=== PATIENT | male | born 1940 | race Caucasian/White ===

== ENCOUNTER → 2024-05-12 11:46 | Outpatient (REF) | payer OTHER, SELFPAY | LOC: PAVMRI 11:46 | PROVIDERS: ATTENDING PHYSICIAN Internal Medicine | DX: M21.372 Foot drop, left foot (principal) | CPT/HCPCS: 72148 ==

== ENCOUNTER 2024-12-19 20:30 | Inpatient (IN) | payer OTHER, SELFPAY ==
[2024-12-19] VITALS (19 sets, daily range): BP systolic 96–125; BP diastolic 56–75; BMI 28.0
--- NOTE | 2024-12-19 18:18 | ED.GENMED ---
History of Present Illness
General
Chief Complaint: Weakness
Time Seen by Provider: 12/19/24 18:18
History of Present Illness
History of Present Illness:
TIME OF INITIAL ENCOUNTER: 6:20 PM
HPI: The patient came in by ambulance from home due to weakness. He apparently was seen by his son who lives in [place] who called for EMS. The patient is somewhat of a limited historian. He does not offer specific complaints however when
asked about GI bleeding he said that his stools have been dark over the last couple of weeks. He thinks that he takes both aspirin and Plavix. EMS noted systolics in the 80s prior to arrival.
EXAM:
GENERAL: The patient is ill-appearing and mildly hypotensive, appears somewhat disheveled
HEENT: Slightly dry oral mucosa
CARDIOVASCULAR: No murmurs, normal heart rate, regular rhythm, No chest wall tenderness
PULMONARY: No respiratory distress, breath sounds are clear and equal
ABDOMEN: Soft with no peritoneal signs, no tenderness, presently heme positive very dark brown stool
NEUROLOGIC: Weak strength all extremities, no coordination deficits
PSYCHIATRIC: He is oriented to the month and place but appears somewhat confused at times
EXTREMITIES: Nontender, no edema, moves all extremities equally
SKIN: He is pale
NUMBER AND COMPLEXITY OF PROBLEMS ADDRESSED AT THE ENCOUNTER
� Chronic conditions affecting care: A-fib, high blood pressure, hyperlipidemia, anxiety/depression
� Acute Exacerbation and/or Progression of Chronic Illness: This is an acute problem
� Differential Diagnosis includes: GI bleed, anemia, dehydration, JEANIE
AMOUNT AND/OR COMPLEXITY OF DATA TO BE REVIEWED AND ANALYZED
� I performed an independent evaluation of and my interpretation is:
EKG: Sinus 75, left axis deviation, bifascicular block
CT:
X-rays:
Laboratory Studies: White count 7.9, hemoglobin 4.5, BUN 39, creatinine 1.2, bicarb is 18
Other:
� Review of other/old records: I reviewed old records, in 2021 the hemoglobin 15.8
� Clinical information was obtained by an independent historian: I spoke to son at bedside.
� Prescriptions/Medications Considered but not given:
� Further testing considered but not performed: No indication for imaging as the patient has no pain and I suspect etiology is an upper GI bleed
RISK OF COMPLICATIONS AND/OR MORBIDITY OR MORTALITY OF PATIENT MANAGEMENT
� Social determinants of health affecting care: Lives at home
� Discussion with other providers: I notified Dr. Barber at 7:30 PM. Hospitalist for admission, Dr. Garland at 7:30 PM
� Escalation of care including admission/observation vs risk of discharge considered:
ANY OTHER UPDATES:
7:25 PM: The patient is found to be markedly anemic. He is on 2 antiplatelets and recently had been taking NSAIDs. I have ordered 3 units of blood. Informed consent signed. I have ordered 80 mg of Protonix as well. He was given IV fluid by EMS.
Past History
Past History
ED Past Medical History: Arrthythmia, HTN, Hypercholesterolemia and Other (Prostate hypertrophy)
ED Past Surgical History: Urological (Prostate surgery)
Social History
Tobacco: Non-smoker
Alcohol: None
Drug: None
Personal:
Living: with family
Phy Exam
Physical Exam
Physical Exam:
See HPI
Course
Orders/Labs/Results
Orders:
Orders
12/19/24 18:18
EKG [Electrocardiogram (*1)] Urgent
Reason for Study: Fatigue / Weakness
EKG- Treatment ONCE
12/19/24 18:28
Pantoprazole [Protonix IV] 80 mg IV NOW STA
12/19/24 18:54
Type And Crossmatch [Type+Screen] Urgent
Complete Blood Count/With Diff Urgent
Comprehensive Metabolic Panel Urgent
12/19/24 19:16
ABO2 Urgent
BBK Wristband Number:
Associate notified that ABO2 has been ordered: [id number]
Date: 12/19/24
Time: 19:12
Endodontic Assistant ID: [id number]
12/19/24 19:19
* Blood Bank Products Urgent
Blood Bank Products: *Packed RBC Leuko(PRBC's)
Quantity: 3
Transfuse Today: Yes
Reason: Anemia
Abnormal Lab Results
12/19/24
18:54
RBC 2.13 L 10^6/uL
(4.70-6.10)
Hgb 4.5 L* g/dL
(13.0-18.0)
Hct 15.7 L* %
(39.0-52.0)
MCV 73.7 L fL
(80.0-94.0)
MCH 21.1 L pg
(27.0-31.0)
MCHC 28.7 L g/dL
(33.0-37.0)
RDW 18.2 H %
(11.5-14.5)
MPV 10.6 H fL
(7.4-10.4)
Abs Immat Gran (auto) 0.1 H 10^3/uL
(0-0.05)
Absolute Lymphs (auto) 0.7 L 10^3/uL
(1.2-3.4)
Immature Gran % 0.8 H %
(0-0.5)
Neutrophils % 82.0 H %
(42.2-75.2)
Lymphocytes % 9.3 L %
(20.5-51.1)
Chloride 109 H mmol/L
(98-107)
Carbon Dioxide 18 L mmol/L
(22-30)
BUN 39 H mg/dl
(9-20)
Glucose 132 H mg/dl
(70-99)
Total Protein 5.0 L g/dl
(6.3-8.2)
Albumin 3.4 L g/dl
(3.5-5.0)
12/19/24 18:54
12/19/24 18:54
Vital Signs
Initial and Last Documented VS:
Initial Vital Signs
Temp Pulse Resp BP Pulse Ox
36.8 C 71 16 101/56 95
12/19/24 18:42 12/19/24 18:42 12/19/24 18:42 12/19/24 18:42 12/19/24 18:42
Last Documented Vital Signs
Temp Pulse Resp BP Pulse Ox
36.8 C 67 20 107/62 95
12/19/24 18:42 12/19/24 19:15 12/19/24 19:15 12/19/24 19:00 12/19/24 18:42
*Critical Care Note
Total Time (30-74mins, 75-104mins- exclusive of procedures): 50min
comment:
The patient is very pale in appearance and is found to have a hemoglobin of 4.5. Blood pressure is borderline low. Emergently ordered 3 units of blood.
ED Attending Note
-
Portions of this chart may have been created with voice recognition software.� Occasional wrong word or��sound alike� substitutions may have occurred due to the inherent limitations of voice recognition software.
Discharge Plan
Departure
Patient Disposition: Admit
Date of Disposition: 12/19/24
Time of Disposition: 19:31
Presentation/result/management discussed w/ accepting MD/DO: Hospitalist
Discharge Problem:
Acute upper GI bleed
Prescriptions:
No Action
prednisone 50 mg tablet
50 mg PO DAILY Qty: 5 0RF
artificial tears(hypromellose) 0.3 % drops
2 drp ophthalmic (eye) TID PRN (Reason: dry eyes) Qty: 30 0RF
Rx Instructions:
use as needed particularly at bedtime
valacyclovir 1 gram tablet
1,000 mg PO TID 7 Days Qty: 21 0RF
cephalexin 500 mg capsule
500 mg PO BID 7 Days Qty: 14 0RF
Referrals:
Tai Ledezma MD [Family Provider] -
Interventions
Interventions:
*Risk Screen - Suicide Last Done: 12/19/24 18:42
*General Assessment Last Done: 12/19/24 18:42
*Neglect/Abuse Screening Last Done: 12/19/24 18:42
*ED COVID-19 Vaccine History Last Done: 12/19/24 18:42
ED- Cardiac Assessment Last Done: 12/19/24 19:23
ED- Neurological Assessment Last Done: 12/19/24 19:23
ED- Pulmonary Assessment Last Done: 12/19/24 19:23
Discharge Date and Time
Print Language: SWISS
[2024-12-19 19:03] LABS: % Basophils 0.1 % (0-2); % Eosinophils 0.3 % (0-6); % Immature Granulocytes 0.8 % (0-0.5); % Lymphocytes 9.3 % (20.5-51.1); % Monocytes 7.5 % (1.7-9.3); Absolute Immature Granulocytes 0.1 10^3/uL (0-0.05); Absolute Lymphocytes 0.7 10^3/uL (1.2-3.4); Absolute Monocytes 0.6 10^3/uL (0.1-0.6); Absolute Neutrophils 6.5 10^3/uL (1.4-6.5); Hematocrit 15.7 % (39.0-52.0); Hemoglobin 4.5 g/dL (13.0-18.0); Mean Corp Hgb Conc. 28.7 g/dL (33.0-37.0); Mean Corpuscular Hgb 21.1 pg (27.0-31.0); Mean Corpuscular Volume 73.7 fL (80.0-94.0); Mean Platelet Volume 10.6 fL (7.4-10.4); Nucleated Red Blood Cells % 0 % (-); Platelet Count 209 10^3/uL (130-400); Red Blood Cell Count 2.13 10^6/uL (4.70-6.10); Red Cell Dist. Width 18.2 % (11.5-14.5); White Blood Cell Count 7.9 10^3/uL (4.8-10.8)
[2024-12-19] MEDS: PROTONIX IV 80 MG IV (19:13)
[2024-12-19 19:15] LABS: ALT (SGPT) 16 U/L (0-50); AST (SGOT) 22 U/L (17-59); Albumin 3.4 g/dl (3.5-5.0); Alkaline Phosphatase 47 U/L (38-126); Blood Urea Nitrogen 39 mg/dl (9-20); Calcium 9.4 mg/dl (8.4-10.2); Carbon Dioxide 18 mmol/L (22-30); Chloride 109 mmol/L (98-107); Estimated Creatinine Clearance 50 ml/min; Glucose 132 mg/dl (70-99); Potassium 3.7 mmol/L (3.5-5.1); Sodium 137 mmol/L (135-145); Total Bilirubin 0.4 mg/dl (0.2-1.3); eGFR > 60.00
[2024-12-19 19:19] LABS: Anisocytosis 1+; Microcytosis 2+; Normal RBC Morphology No
[2024-12-19 19:22] LABS: Hypochromasia 2+
[2024-12-19 19:24] LABS: Ovalocytes 3+
--- NOTE | 2024-12-19 19:41 | HPS.HSE ---
Addendum entered and electronically signed by Lawanda Broussard DO 12/20/24 00:01:
The patient is seen and examined. I have reviewed the patient with Ana YA, and agree with her history and physical, assessment and plan of care as per below with additions: Has had worsening generalized weakness; Black stools x 2 weeks. Patient
does not recall why he is on aspirin and Plavix. Not on DOAC. He is not sure if he's been taking NSAID or Tylenol OP for spinal stenosis pain. He does not recall having ever had an upper endoscopy nor colonoscopy. No active bleeding. Stool Hemoccult
positive for blood.
VSS, AF
Currently receiving PRBC in ED - 3 units ordered
Hgb 4.5
Concern is for acute blood loss anemia upper GI bleed
-plan of care as per below. Will try to obtain records from PCP re: aspirin and Plavix.
Original Note:
Family Physician
-
Family Physician: Tai Ledezma
Chief Complaint
-
Weakness
History of Present Illness
Patient is an 84 y/o male past medical history of atrial fibrillation, hypertension, hyperlipidemia, anxiety/depression and BPH who presents with weakness. Patient reports increasing weakness over the past few weeks to the point he can no longer
ambulate. He reports dizziness/lightheadedness and note he cant walk more than 10 steps without symptoms. He admits to associated shortness of breath and a pins/needles sensation in his feet. He reports very dark to black colored stools over the
past few weeks. He notes some upper abdominal discomfort. He denies chest pain. He denies prior history of GI bleed and does not believe he has ever had an upper endoscopy or colonoscopy. He is maintained on aspirin and Plavix as outpatient. He
states he did take some Motrin recent but notes this a rare occurrence.
Medical History
Past Medical History
Past Medical History: Reports Other
Additional Past Medical History:
Paroxysmal Atrial Fibrillation
Essential Hypertension
Hyperlipidemia
Anxiety/Depression
BPH
Past Surgical History: Reports Other
Additional Past Surgical History:
Skin Cancer Excision
TURP
Social History
Tobacco: Former Smoker (Quit about 5 years ago)
Alcohol: Occasional
Personal:
Living: With Family
Family History
Family History: Not pertinent
Allergies / Home Medications
Allergies reflects when Allergies were last updated in [facility].
Home Medications with original date entered in [facility]
Allergy/Medication List:
Allergies
Allergy/AdvReac Type Severity Reaction Status Date / Time
No Known Allergies Allergy Verified 12/19/24 18:17
Home Medications
amlodipine 5 mg tablet 5 mg PO DAILY 12/19/24
aspirin 81 mg tablet,delayed release 81 mg PO DAILY 12/19/24
atorvastatin 10 mg tablet 10 mg PO DAILY 12/19/24
clopidogrel 75 mg tablet 75 mg PO DAILY 12/19/24
escitalopram oxalate 10 mg tablet (Lexapro) 10 mg PO DAILY 12/19/24
hydrochlorothiazide 25 mg tablet 25 mg PO DAILY 12/19/24
metoprolol succinate 100 mg tablet,extended release 24 hr 100 mg PO DAILY 12/19/24
tamsulosin 0.4 mg capsule 0.4 mg PO DAILY 12/19/24
valsartan 320 mg tablet 320 mg PO DAILY 12/19/24
Review of Systems
-
A 12 point ROS was completed and negative except as noted: Yes
Constitutional: Denies Fever or Chills
Respiratory: Denies Cough
Cardiac: Denies Palpitations
Physical Exam
Vital Signs
Vital Signs
Temp Pulse Resp BP Pulse Ox
98.3 F 67 20 107/62 95
12/19/24 18:42 12/19/24 19:15 12/19/24 19:15 12/19/24 19:00 12/19/24 18:42
Physical Exam
General: Comfortable, Conversant and Other (Appears pale)
HEENT: Anicteric and Moist mucous membranes
Respiratory: Clear and Non Labored Respirations
Cardiac: S1/S2 and Regular Rhythm
GI: Soft and Tender (Mild tenderness to palpation in epigastric region without rebound or guarding)
Rectal: Black and Hem Positive (Per ED Provider)
Musculoskeletal: No Clubbing, No Cyanosis and No Edema
Skin: Warm and Dry
Neuro: Awake, Alert and Nonfocal/grossly intact
Psych: Calm
Laboratory Results
-
12/19/24 18:54
12/19/24 18:54
Laboratory Results
Total Bilirubin 0.4 mg/dl (0.2-1.3) 12/19/24 18:54
AST 22 U/L (17-59) 12/19/24 18:54
ALT 16 U/L (0-50) 12/19/24 18:54
Alkaline Phosphatase 47 U/L (38-126) 12/19/24 18:54
Data Reviewed
-
Lab Data: Labs Reviewed by me
Old Records: Requested
Impression/Plan
-
Acute Blood Loss Anemia secondary to GI Bleed
-3 units PRBCs ordered by ED
-Recheck Hgb following blood transfusion
-Check iron studies
GI Bleed, likely upper in nature
-Consult GI
-Continue Protonix IV BID
-Continue NPO
-Hold Plavix
Paroxysmal Atrial Fibrillation
-Patient is not on anticoagulation - Will attempt to obtain records from PCP as patient is a limited historian and does not visit doctors regularly
-Continue metoprolol for rate control
Essential Hypertension
-Continue metoprolol, amlodipine and valsartan with hold parameters
Hyperlipidemia
-Continue atorvastatin
Anxiety/Depression
-Continue escitalopram
BPH
-Continue tamsulosin
DVT proph: SCDs
Code Status: Full Code
[2024-12-19 20:42] LABS: Iron < 20 ug/dl (49-181)
[2024-12-19 20:49] LABS: Total Iron Binding Capacity 354 ug/dl (261-462)
[2024-12-19 21:46] LABS: Vitamin B12 602 pg/ml (239-931)
--- NOTE | 2024-12-19 22:47 | EDRN ---
First unit complete. As RN flushing IV s/p blood transfusion completion, pt. stated, 'I do have a little pain to the right side of my chest, it's barely there, but it feels like a bruise'. Pt. denies shortness of breath. EKG completed. Admitting
team paged and at bedside. Per admitting team, pt. still to receive ordered blood.
[2024-12-19 23:03] LABS: Folate > 20.0 ng/ml (2.76-20)
[2024-12-20] VITALS (27 sets, daily range): BP systolic 116–167; BP diastolic 70–88; PULSE 68–76; O2SAT 96; BMI 27.3; BMI 27.2
--- NOTE | 2024-12-20 00:03 | PTCARENOTE ---
Received patient from ED @ 5101. Patient awake and oriented x3. BP 120/71, NSR with first degree and BBB 60s-70s, 98% on room air. Discussed plan of care for evening. Patient verbalized understanding being NPO. Call kaba within reach.
--- NOTE | 2024-12-20 02:00 | PTCARENOTE ---
Addendum entered by Hermila Carlson RN 12/20/24 03:25:
Second unit completed with no issues.
Original Note:
Second unit of blood transfusing-- see TAR. No c/o of patient. Stated he was 'actually feeling a lot better.' Vitals stable.
--- NOTE | 2024-12-20 03:25 | PTCARENOTE ---
Third unit of PRBCs initiated-- see TAR.
--- NOTE | 2024-12-20 05:24 | PTCARENOTE ---
Third unit of PRBCs completed. Pt denies any SOB, chills, itchiness, or other symptoms of reaction. States feeling much better.
[2024-12-20 05:54] LABS: Blood Urea Nitrogen 33 mg/dl (9-20); Calcium 9.1 mg/dl (8.4-10.2); Carbon Dioxide 19 mmol/L (22-30); Chloride 112 mmol/L (98-107); Estimated Creatinine Clearance 54 ml/min; Glucose 90 mg/dl (70-99); Potassium 3.8 mmol/L (3.5-5.1); Sodium 141 mmol/L (135-145); eGFR > 60.00
[2024-12-20 07:03] LABS: Hemoglobin 7.3 g/dL (13.0-18.0); Mean Corp Hgb Conc. 30.4 g/dL (33.0-37.0); Mean Corpuscular Hgb 23.8 pg (27.0-31.0); Mean Corpuscular Volume 78.2 fL (80.0-94.0); Platelet Count 197 10^3/uL (130-400); Red Blood Cell Count 3.07 10^6/uL (4.70-6.10); Red Cell Dist. Width 18.6 % (11.5-14.5); White Blood Cell Count 7.9 10^3/uL (4.8-10.8)
[2024-12-20] MEDS: TOPROL XL 100 MG PO (08:30)
[2024-12-20] MEDS: FLOMAX 0.4 MG PO (08:30)
[2024-12-20] MEDS: DIOVAN 320 MG PO (08:30)
[2024-12-20] MEDS: LEXAPRO 10 MG PO (08:30)
[2024-12-20] MEDS: NORVASC 5 MG PO (08:30)
[2024-12-20] MEDS: LIPITOR 10 MG PO (08:30)
[2024-12-20] MEDS: PROTONIX IV 40 MG IV ×2 (08:31→19:20)
[2024-12-20] MEDS: NSS (PRESERVATIVE FREE) 10 ML IV ×2 (08:31→19:20)
--- NOTE | 2024-12-20 08:48 | W.PN.HOSP.TC ---
Addendum entered and electronically signed by Artur Mg MD 12/20/24 17:03:
patient was taking ASA 325 for chronic back pain - he is not on ASA (of any dose) per PCP (see below)
Original Note:
Today's Communication/Plan
-
see outlined plan
Assessment / Plan
Assessment / Plan
Assessment:
Acute Blood Loss Anemia secondary to GI Bleed, likely upper GI bleed
- Hb 4.5 on admission. Now 7.3 after 3 units PRBCs. Follow Hb
- start IV iron course
- GI consulted
- continue PPI IV BID
- await Plavix washout
hx of Parox A. Fib
- continue BB for rate control
hx of TIA
hx of PAD
Hx of Carotid Atherosclerosis
- Dr. Mg discussed with PCP Dr. Ledezma. Patient has history of ASA failure, therefore only on Plavix. Plavix is held for acute GI bleed.
Essential HTN
- continue metoprolol, amlodipine and valsartan with hold parameters
Hyperlipidemia
- continue atorvastatin
Anxiety/Depression
- continue escitalopram
BPH
- continue tamsulosin
DVT ppx: SCDs due to GI bleed
Code Status: Full
Pending final med rec
Anticipated Discharge: > 48 hours
Subjective/Interval History
-
Date of Service: December 20, 2024
Hb 7.3
Feels improved, less fatigued
no cp or sob
Objective Data
-
Labs:
Laboratory Results
12/20/24
05:20
WBC 7.9
Hgb 7.3 L D
Hct 24.0 L
Plt Count 197
Sodium 141
Potassium 3.8
Chloride 112 H
Carbon Dioxide 19 L
BUN 33 H
Creatinine 1.1
Glucose 90
Calcium 9.1
Vital Signs:
Vital Signs
Temp Pulse Resp BP Pulse Ox
98.7 F 64 16 139/83 96
12/20/24 05:12 12/20/24 07:40 12/20/24 05:12 12/20/24 08:30 12/20/24 07:50
I&O
12/19/24 12/20/24 12/21/24
06:59 06:59 06:59
Intake Total 250 / 250
Balance 250 / 250
Physical Exam
-
General: No Apparent Distress
HEENT: Normocephalic and Atraumatic
Respiratory: Negative Wheezes
Cardiac: Regular Rhythm and S1/S2
GI: Soft and Nontender
Genito-urinary: No Costovertebral Tender
Musculoskeletal: No Edema
Neuro: AO x 3
Hematologic / Lymphatic: No Lymphadenopathy
Psych: Calm
Data Reviewed
-
Total Time Spent with Patient (in minutes): 44
Labs: Labs Reviewed by me
--- NOTE | 2024-12-20 09:25 | CM ---
Reviewed chart. Met with Mr. Conner to review discharge plans. He states prior to admission he resides with is spouse in a two story home with two steps to enter. He states he has a full flight of steps to get to bedroom/full bathroom. He states
he has a powder room on the first floor. He states prior to admission he was independent with ambulation and adls. He states he does not have any DME in the home. He states he has a prescription plan and uses [facility]. Will need to see his
current functional level to see if he will have any skilled care needs. Medical work-up in progress. The discharge plan is to return home with his spouse and [facility] if indicated when medically stable.
--- NOTE | 2024-12-20 12:31 | CON.GI ---
Addendum entered and electronically signed by Nishi Carr DO 12/20/24 14:25:
The patient was seen and examined by me independently in collaboration with the nurse practitioner.
Past medical history/social history/medications/allergies/family history reviewed.
Lab data and imaging data reviewed.
Hima Conner is an 84-year-old male with past medical history of carotid atherosclerosis, peripheral arterial disease, history of TIA, history of paroxysmal A-fib admitted with acute blood loss anemia with concern for GI bleeding. He reports
black stools at home for a few days, denies this happening in the past. He is somewhat of a poor historian but it appears he was taking aspirin 325 mg daily in conjunction with Plavix and Motrin, he was unaware this would increase his bleeding
risk. After speaking with his son, he possibly has had a colonoscopy before, on sure what the results of this were and when it occurred. Hemoglobin on arrival was 4.5, he was subsequently transfused with 3 units of PRBC with improvement to 7.3.
BUN elevated to 39 --> 33. Labs consistent with iron deficiency, Iron <20, Fe 4. He is hemodynamically stable.
Suspect UGIB source of bleeding in setting of DAPT with possible inadvertent increase of ASA to 325 mg as well as NSAID use, supported by elevated BUN. He is hemodynamically stable, responded well to 3 units of PRBC.
A/P:
c/w IV PPI BID
Last dose of ASA/Plavix yesterday 2/
s/p 3 units of PRBC with appropriate response
maintain 2 large bore peripheral gauge IVs
Active T&C
NPO PMN for EGD in AM with Dr. Barber
Discussed with patient's son, Hima
Original Note:
Consultation
-
Date/Time Consultation Requested: 12/19/242119
Date/Time Consultation Performed: 12/20/24 1230
Requesting Provider: Eli Obrien PA-C
Performing Provider: HENRI Julian, Louis Barber MD
Reason for Consultation: anemia- acute blood loss
Medical History
Chief Complaint / HPI
Chief Complaint: shortness of breath, recent dark stools
History of Present Illness:
Pt is an 84yo with hx PAF, TIA on Plavix PAD, HTN, hyperlipidemia, anxiety/depression, BPH with admission with weakness with shortness of breath and tinging in feet and fall. On admission noted with hbg 4.5 with microcytosis and iron deficiency and
BUN of 39. Pt is s/p transfusion improved to 7.3. Prior hbg 12/2023 was 13.4. In review with patient noted with recent dark stool on Thursday. Per family may have had 1 dose of Motrin but otherwise took Tylenol. May have taken increased ASA
dose of 325mg instead of 81mg.
In review with patient he admits to recent dark stool last week with dizziness on standing. He does admits to occasional loose stool then constipation requiring laxatives at time. Per patient and family no prior EGD and may have had
colonoscopy in past unclear of timing and details. He denies dysphagia, GERD, nausea, vomiting, abdominal pain, or red blood in stools. ER rectal dark brown heme +
Past Medical History
Past Medical History: Arrhythmias (PAF), CVA (TIA ), HTN, Hypercholesterolemia, Psychiatric (anxiety/depression) and Other (BPH, PAD)
Social History
Tobacco: Former Smoker
Alcohol: None
Drug: None
Personal:
Living: With Family
Employment: Retired
Family History
Family History: Other (denies family hx colon CA or polyps)
Allergies / Home Medications
Allergy/AdvReac Type Severity Reaction Status Date / Time
No Known Allergies Allergy Verified 12/19/24 18:17
�Medication �Instructions �Recorded
amlodipine 5 mg tablet 5 mg PO DAILY 12/19/24
atorvastatin 10 mg tablet 10 mg PO DAILY 12/19/24
clopidogrel 75 mg tablet 75 mg PO DAILY 12/19/24
escitalopram oxalate 10 mg tablet 10 mg PO DAILY 12/19/24
(Lexapro)
metoprolol succinate 100 mg 100 mg PO DAILY 12/19/24
tablet,extended release 24 hr
tamsulosin 0.4 mg capsule 0.4 mg PO DAILY 12/19/24
valsartan 320 mg tablet 320 mg PO DAILY 12/19/24
aspirin 325 mg capsule 325 mg PO DAILY 12/20/24
docusate sodium 100 mg capsule 100 mg PO DAILY PRN constipation 12/20/24
furosemide 20 mg tablet 20 mg PO BID 12/20/24
Review of Systems
-
History Source: Patient and Family
Constitutional: Reports Weight Loss ( 5 lbs )
EENT: Reports No Symptoms
Respiratory: Reports No Symptoms
Cardiac: Reports No Symptoms
Abdomen/GI: Reports Diarrhea (some recent loose dark stools), Constipated (occasional ducolax use ) and Black Stools (recent dark stools)
: Reports No Symptoms
Musculoskeletal: Reports No Symptoms
Skin: Reports No Symptoms
Neurological: Reports Dizzy and Weakness
Endocrine: Reports No Symptoms
Hematologic/Lymphatic: Reports Bleeding
Vital Signs
Temp Pulse Resp BP Pulse Ox
98.2 F 65 18 130/74 97
12/20/24 11:23 12/20/24 12:00 12/20/24 11:23 12/20/24 11:25 12/20/24 11:25
Physical Exam
Exam
General: Well Developed, Well Nourished and No Apparent Distress
HEENT: Normocephalic and Anicteric
Respiratory: Clear
Cardiac: Regular Rhythm
GI: Soft, Non Tender and Non Distended
Rectal: Other (dark brown heme + in ER)
Musculoskeletal: No Clubbing and No Cyanosis
Skin: Warm and Dry
Neuro: Awake, Alert and AO x 3
Psych: Calm
Results
WBC 7.9 10^3/uL (4.8-10.8) 12/20/24 05:20
Hgb 7.3 g/dL (13.0-18.0) L D 12/20/24 05:20
Hct 24.0 % (39.0-52.0) L 12/20/24 05:20
MCV 78.2 fL (80.0-94.0) L 12/20/24 05:20
Plt Count 197 10^3/uL (130-400) 12/20/24 05:20
Absolute Neuts (auto) 6.5 10^3/uL (1.4-6.5) 12/19/24 18:54
Sodium 141 mmol/L (135-145) 12/20/24 05:20
Potassium 3.8 mmol/L (3.5-5.1) 12/20/24 05:20
Chloride 112 mmol/L (98-107) H 12/20/24 05:20
Carbon Dioxide 19 mmol/L (22-30) L 12/20/24 05:20
BUN 33 mg/dl (9-20) H 12/20/24 05:20
Creatinine 1.1 mg/dL (0.7-1.3) 12/20/24 05:20
Calcium 9.1 mg/dl (8.4-10.2) 12/20/24 05:20
Total Bilirubin 0.4 mg/dl (0.2-1.3) 12/19/24 18:54
AST 22 U/L (17-59) 12/19/24 18:54
ALT 16 U/L (0-50) 12/19/24 18:54
Alkaline Phosphatase 47 U/L (38-126) 12/19/24 18:54
Diagnostic Image Results:
2/3 CXR
No acute cardiopulmonary process.
Prior GI Procedures:
EGD: none
Colonoscopy: ? [facility] in past family could not recall findings
Assessment / Plan
-
Pt is an 84yo with hx PAF, TIA on Plavix PAD, HTN, hyperlipidemia, anxiety/depression, BPH with admission with weakness with shortness of breath and tinging in feet and fall. On admission noted with hbg 4.5 with microcytosis and iron deficiency and
BUN of 39. Pt is s/p transfusion improved to 7.3. Prior hbg 12/2023 was 13.4. In review with patient noted with recent dark stool on Thursday. Per family may have had 1 dose of Motrin but otherwise took Tylenol and may have taken increased ASA
dose of 325mg instead of 81mg. He does admits to occasional loose stool then constipation requiring laxatives at time. Per patient and family no prior EGD and may have had colonoscopy in past unclear of timing and details. ER rectal dark brown
heme +.
-symptomatic iron deficiency anemia with recent dark stools concern for UGI Bleed
-elevated BUN
-s/p fall
-TIA/PAD on Plavix and ASA with ? recent increased dose
other med problems:
-PAF
-HTN
-hypercholesterolemia
-BPH
-anxiety/depression
PLAN:
etiology of bleeding upper source with dizziness, elevated BUN, recent increased ASA dose vs other
PUD, ectasia, mass vs other
cont to hold Plavix last dose 12/19
plan for EGD in AM
s/p transfusion
trend hbg hbg improved to 7.3 post transfusion
cont IV iron
cont PPI
ok for dinner then NPO in AM
I updated son Jorge [phone]
-
-
Thank you for consultation and allowing me to participate in the patient's care. Please call the authorization manager GI physician during the after hours with any questions or concerns.
[2024-12-20] MEDS: FERRLECIT 110 MG IV (13:39)
--- NOTE | 2024-12-20 20:49 | PTCARENOTE ---
Pt found oob without assistance turning off extra lights. Pt instructed to call nursing before ambulating for safety. Pt then found oob about 30 mins later ambulating in room. When approached by nursing pt hurried to bed jumping in stating 'I know I
know I'm not allowed up without you.
Pt instructed on npo status after mn for EGD.
--- NOTE | 2024-12-20 22:40 | PTCARENOTE ---
Pt appears forgetful having great difficulty understanding and retaining how to use call kaba. in bed at present. Sinus with freq pvc's on telemetry.
--- NOTE | 2024-12-20 23:01 | PTCARENOTE ---
Pt came out of room in [place] looking to turn down the lights in the hallway. Pt reoriented to surroundings. bed alarm placed.
[2024-12-21] VITALS (14 sets, daily range): BP systolic 135–192; BP diastolic 78–102; BMI 27.1
--- NOTE | 2024-12-21 00:11 | PTCARENOTE ---
Pt found sitting on side of bed with gown and telemetry pulled off appeared confused to surroundings but Pt stated he knew he was at [facility] and that he had a test that required him to be fasting. telemetry and gown replaced.
--- NOTE | 2024-12-21 03:42 | PTCARENOTE ---
Pt continues to be restless throughout the night. Found sitting on side of bed several times with gown and monitor off. Pt reorients quickly.
remains npo for EGD. am labs drawn and sent to lab, result spending.
[2024-12-21 03:52] LABS: Hematocrit 24.4 % (39.0-52.0); Hemoglobin 7.6 g/dL (13.0-18.0); Mean Corp Hgb Conc. 31.1 g/dL (33.0-37.0); Mean Corpuscular Hgb 24.1 pg (27.0-31.0); Mean Corpuscular Volume 77.2 fL (80.0-94.0); Mean Platelet Volume 10.2 fL (7.4-10.4); Platelet Count 206 10^3/uL (130-400); Red Blood Cell Count 3.16 10^6/uL (4.70-6.10); Red Cell Dist. Width 18.1 % (11.5-14.5); White Blood Cell Count 6.9 10^3/uL (4.8-10.8)
[2024-12-21 03:59] LABS: INR 1.09; PT 14.5 Sec (11.4-14.6)
[2024-12-21 04:20] LABS: Blood Urea Nitrogen 23 mg/dl (9-20); Calcium 9.2 mg/dl (8.4-10.2); Carbon Dioxide 20 mmol/L (22-30); Chloride 110 mmol/L (98-107); Estimated Creatinine Clearance 60 ml/min; Glucose 92 mg/dl (70-99); Potassium 3.9 mmol/L (3.5-5.1); Sodium 141 mmol/L (135-145); eGFR > 60.00
--- NOTE | 2024-12-21 05:52 | PTCARENOTE ---
Pt continues to get more confused getting oob looking for , reoriented but pt having harder time retaining reminders.
bed alarm remains activated.
--- NOTE | 2024-12-21 08:42 | SUR.OPER ---
Assumed care. Patient impulsive, very forgetful to place, short term memory impairment, requiring constant reminders, standing on side of bed, cooperative. Does not recall events leading up to hospitalization and did not realize he was in the
hospital. Know the time, date year and president. Removed his IV, replaced 18 gauge LAC, wrapped with cling. Bed alarm audible for safety. NPO for EGD today
[2024-12-21] MEDS: DIOVAN 320 MG PO (09:39)
[2024-12-21] MEDS: LIPITOR 10 MG PO (09:40)
[2024-12-21] MEDS: TOPROL XL 100 MG PO (09:40)
[2024-12-21] MEDS: FLOMAX 0.4 MG PO (09:40)
[2024-12-21] MEDS: NORVASC 5 MG PO (09:40)
[2024-12-21] MEDS: NSS (PRESERVATIVE FREE) 10 ML IV ×2 (09:41→20:07)
[2024-12-21] MEDS: PROTONIX IV 40 MG IV ×2 (09:41→20:07)
[2024-12-21] MEDS: LEXAPRO 10 MG PO (09:41)
--- NOTE | 2024-12-21 10:39 | PTCARENOTE ---
Patient assisted to the bathroom felt has if he had to move his bowels but just voided. He became lightheaded, dizzy, 'I feel like I need to site down'. Assisted to bed, BP 161/93. Urinal provided, bedrest maintained
--- NOTE | 2024-12-21 10:52 | PTCARENOTE ---
Report called to the GI lab
--- NOTE | 2024-12-21 11:12 | W.PN.GI.CBS2 ---
Today's Communication / Plan
-
Please see assessment plan for details.
Assessment / Plan
-
1. Iron deficiency anemia : Likely some component of acute blood loss anemia with dark stools in the past, though only brown yesterday, in the setting of aspirin, Motrin and Plavix. At this point he responded appropriately to transfusion and has
remained hemodynamically stable with no further signs of gross bleeding. Given his change in mental status we will hold on endoscopy for now given no evidence of active bleeding. Will start clear liquids, tentatively make n.p.o. for possible EGD
tomorrow pending his mental status and other clinical course.
Subjective
Subjective
Date of Service: December 21, 2024
Events noted, patient with confusion this morning, pulling out IV. Had a sounds like vagal event when stood up with sweating and lightheadedness, though vital signs after sitting down remained stable. He had no bowel movements overnight. He
currently denies any abdominal pain though is slightly confused.
Objective
Data Reviewed
Laboratory Data:
Laboratory Results
12/21/24 03:38
12/21/24 03:38
Laboratory Results
PT 14.5 Sec (11.4-14.6) 12/21/24 03:38
INR 1.09 12/21/24 03:38
Total Bilirubin 0.4 mg/dl (0.2-1.3) 12/19/24 18:54
AST 22 U/L (17-59) 12/19/24 18:54
ALT 16 U/L (0-50) 12/19/24 18:54
Alkaline Phosphatase 47 U/L (38-126) 12/19/24 18:54
Vital Signs and I&O:
Vital Signs
Temp Pulse Resp BP Pulse Ox
98.5 F 67 20 170/78 95
12/21/24 07:47 12/21/24 10:48 12/21/24 07:47 12/21/24 10:48 12/21/24 10:48
I&O
12/20/24 12/21/24 12/22/24
06:59 06:59 06:59
Intake Total 250 / 250 480 / 480
Balance 250 / 250 480 / 480
Physical Exam
Physical Exam
General: NAD
Abdomen: normal bowel sounds, soft, no tenderness, no masses or bruits, no ascites
--- NOTE | 2024-12-21 13:43 | W.PN.HOSP.TC ---
Today's Communication/Plan
-
Monitor vital signs see plan
Repeat hemoglobin later today and transfuse as necessary
EGD canceled for today
Continue clears
Check CT head
Check UA
Discussed with family at bedside
Assessment / Plan
Assessment / Plan
Assessment:
General: No Apparent Distress
HEENT: Normocephalic and Atraumatic
Respiratory: Negative Wheezes
Cardiac: Regular Rhythm and S1/S2
GI: Soft and Nontender
Genito-urinary: No Costovertebral Tender
Musculoskeletal: No Edema
Neuro: AO x 3
Psych: Calm
Acute Blood Loss Anemia secondary to GI Bleed, likely upper GI bleed
- Hb 4.5 on admission. Now 7.6 after 3 units PRBCs. Follow Hb
- start IV iron course
- GI consulted
- continue PPI IV BID
- await Plavix washout
Suspect cognitive impairment
Could also have component of hospital-acquired delirium
Discussed with family and it appears the patient has been having intermittent memory issues
Check CT head
hx of Parox A. Fib
- continue BB for rate control
hx of TIA
hx of PAD
Hx of Carotid Atherosclerosis
- Dr. Mg discussed with PCP Dr. Ledezma. Patient has history of ASA failure, therefore only on Plavix. Plavix is held for acute GI bleed.
patient was taking ASA 325 for chronic back pain - he is not on ASA (of any dose) per PCP (see below)
Essential HTN
- continue metoprolol, amlodipine and valsartan with hold parameters
Hyperlipidemia
- continue atorvastatin
Anxiety/Depression
- continue escitalopram
BPH
- continue tamsulosin
DVT ppx: SCDs due to GI bleed
Code Status: Full
I spent a total of 52 minutes with the patient or on the floor. More than 50% of this time involved counseling and coordination of care.
Anticipated Discharge: 24 - 48 hours
Subjective/Interval History
-
Date of Service: December 21, 2024
denies pain
Objective Data
-
Labs:
Laboratory Results
12/21/24
03:38
WBC 6.9
Hgb 7.6 L
Hct 24.4 L
Plt Count 206
PT 14.5
INR 1.09
Sodium 141
Potassium 3.9
Chloride 110 H
Carbon Dioxide 20 L
BUN 23 H
Creatinine 1.0
Glucose 92
Calcium 9.2
Vital Signs:
Vital Signs
Temp Pulse Resp BP Pulse Ox
97.5 F 67 20 163/90 97
12/21/24 11:27 12/21/24 11:52 12/21/24 11:27 12/21/24 11:52 12/21/24 11:27
I&O
12/20/24 12/21/24 12/22/24
06:59 06:59 06:59
Intake Total 250 / 250 480 / 480 100 / 100
Output Total 300 / 300
Balance 250 / 250 480 / 480 -200 / -200
[2024-12-21] MEDS: FERRLECIT 110 MG IV (13:50)
--- NOTE | 2024-12-21 14:26 | PTCARENOTE ---
Patient sent to CT scan on a stretcher
[2024-12-21 15:10] LABS: Urine Albumin Negative (Neg - Trace); Urine Bilirubin Negative (Negative); Urine Character Clear (Clear); Urine Color Yellow; Urine Glucose Negative (Negative); Urine Ketone 1+ (Negative); Urine Leukocyte Negative (Negative); Urine Nitrite Negative (Negative); Urine Occult Blood Negative (Negative); Urine Specific Gravity 1.015 (<1.030); Urine Urobilinogen Negative (Neg - 1+)
--- NOTE | 2024-12-21 19:09 | PTCARENOTE ---
Patient in the chair most of the afternoon, daughter at bedside. Remains confused to place, to situation, short term memory impairment requiring frequent orientation. Bed and chair alarm audible, using urinal with assistance. Call kaba in reach
[2024-12-21] MEDS: TYLENOL 650 MG PO (21:15)
[2024-12-21 21:33] LABS: Hemoglobin 8.8 g/dL (13.0-18.0)
[2024-12-22] VITALS (21 sets, daily range): BP systolic 12–178; BP diastolic 74–96; PULSE 61; BMI 26.5
--- NOTE | 2024-12-22 00:26 | PTCARENOTE ---
Pt rec'd at change of shift resting in recliner chair with pct at bedside. Family left during change of shift. Pt awake,alert and calm. oriented to year, president and stated he was in [facility] but quickly changed his answer to [place] .
Pt given bath in bathroom by pct. buttocks reddened with external Hemorrhoid present. barrier cream applied. Pt passed mod soft stool blood tinged in toilet. no further stools noted. HGB at 2100 was 8.8. At HS pt placed in bed and can be heard
snoring from hallway. bed alarm activated.
[2024-12-22] MEDS: TYLENOL 650 MG PO ×2 (05:04→21:20)
--- NOTE | 2024-12-22 05:24 | PTCARENOTE ---
Pt slept until 0500 when he woke up confused to his surroundings. Assisted to bathroom to void, no bm's. reoriented and remains calm. medicated with Tylenol for left leg pain. resting in bed at present. npo for possible EGD. bed alarm remains active
[2024-12-22 05:34] LABS: Hematocrit 26.6 % (39.0-52.0); Hemoglobin 8.2 g/dL (13.0-18.0); Mean Corp Hgb Conc. 30.8 g/dL (33.0-37.0); Mean Corpuscular Hgb 23.6 pg (27.0-31.0); Mean Corpuscular Volume 76.4 fL (80.0-94.0); Mean Platelet Volume 10.4 fL (7.4-10.4); Platelet Count 246 10^3/uL (130-400); Red Blood Cell Count 3.48 10^6/uL (4.70-6.10); Red Cell Dist. Width 18.5 % (11.5-14.5); White Blood Cell Count 6.8 10^3/uL (4.8-10.8)
[2024-12-22 06:18] LABS: Blood Urea Nitrogen 13 mg/dl (9-20); Calcium 9.5 mg/dl (8.4-10.2); Carbon Dioxide 21 mmol/L (22-30); Chloride 104 mmol/L (98-107); Estimated Creatinine Clearance 66 ml/min; Glucose 95 mg/dl (70-99); Potassium 3.9 mmol/L (3.5-5.1); Sodium 135 mmol/L (135-145); eGFR > 60.00
--- NOTE | 2024-12-22 07:51 | W.PN.UPDATE ---
Update Note
Progress Note Update
I discussed with patient's son this morning. The patient has had episodes, though not as bad, like this over time, likely has sundowning in the hospital. Head CT and labs otherwise unremarkable. Will proceed with EGD today.
[2024-12-22] MEDS: DIOVAN 320 MG PO (08:20)
[2024-12-22] MEDS: LIPITOR 10 MG PO (08:21)
[2024-12-22] MEDS: TOPROL XL 100 MG PO (08:21)
[2024-12-22] MEDS: NORVASC 5 MG PO (08:21)
[2024-12-22] MEDS: LEXAPRO 10 MG PO (08:21)
[2024-12-22] MEDS: FLOMAX 0.4 MG PO (08:21)
[2024-12-22] MEDS: NSS (PRESERVATIVE FREE) 10 ML IV ×2 (08:22→20:28)
[2024-12-22] MEDS: PROTONIX IV 40 MG IV ×2 (08:22→20:28)
--- NOTE | 2024-12-22 09:04 | PTCARENOTE ---
assumed care. patient was sleeping, awakens easily. He is AO x3 this morning, but can not recall why he is here. SR/SB 50-60 with PVC's. NPO for EGD, meds given with a sip of water. Abdomen soft non-tender. Using urinal at bedside. Bed alarm
audible, call kaba in reach
[2024-12-22] MEDS: KCL 270 MEQ IV (09:54)
[2024-12-22 10:20] LABS: Magnesium 2.3 mg/dl (1.6-2.3)
--- NOTE | 2024-12-22 12:28 | CM ---
Reviewed chart. Met with Mr. Conner and his son to review discharge plans. We reviewed SNF/Rehab. if indicated. Son states Mrs. Conner recently had a CVA and is doing outpatient therapy. Prior to admission Mr. Conner resides with his spouse in a
two story home with two steps to enter. He has a full flight of steps to get to bedroom/full bathroom. He has a powder room on the first floor. Prior to admission he was independent with ambulation and adls. He does not have any DME in the home.
He has a prescription plan and uses [facility]. Will need pre-cert with his insurance. Medical work-up in progress. The discharge plan is to go to SNF/Rehab. when bed available and approved by insurance and he is agreeable.
--- NOTE | 2024-12-22 13:18 | W.PN.HOSP.TC ---
Today's Communication/Plan
-
Monitor vital signs see plan
Continue to hold Plavix
Monitor mental status closely
Plan for EGD today
Monitor hemoglobin
Monitor telemetry
Discussed with son at bedside
Assessment / Plan
Assessment / Plan
Assessment:
General: No Apparent Distress
HEENT: Normocephalic and Atraumatic
Respiratory: Negative Wheezes
Cardiac: Regular Rhythm and S1/S2
GI: Soft and Nontender
Genito-urinary: No Costovertebral Tender
Musculoskeletal: No Edema
Neuro: AO x 3
Psych: Calm
Acute Blood Loss Anemia secondary to GI Bleed, likely upper GI bleed
- Hb 4.5 on admission. Now 8.2 after 3 units PRBCs. Follow Hb
- cw IV iron course
- GI following
- continue PPI IV BID
- await Plavix washout; plan for EGD 12/22
Suspect cognitive impairment
Could also have component of hospital-acquired delirium
Discussed with family and it appears the patient has been having intermittent memory issues
CT head without any acute abnormality
Patient does appear to have waxing and waning mental status. Does appear to have cognitive impairment however have not been formally diagnosed with dementia. Patient will follow-up with PCP outpatient. If mental status do not improve or get worse
then will need MRI brain
ua without UTI
Brief pause 12/22
monitor closely; if frequent or longer then consult cards
replete K; mg 2.3
hx of Parox A. Fib
- continue BB for rate control
hx of TIA
hx of PAD
Hx of Carotid Atherosclerosis
- Dr. Mg discussed with PCP Dr. Ledezma. Patient has history of ASA failure, therefore only on Plavix. Plavix is held for acute GI bleed.
patient was taking ASA 325 for chronic back pain - he is not on ASA (of any dose) per PCP (see below)
no reported hx of CHF
on lasix at home; restart especially given high BP
Essential HTN
- continue metoprolol, amlodipine and valsartan with hold parameters
Hyperlipidemia
- continue atorvastatin
Anxiety/Depression
- continue escitalopram
BPH
- continue tamsulosin
DVT ppx: SCDs due to GI bleed
Code Status: Full
PT/OT rec SNF
I spent a total of 51 minutes with the patient or on the floor. More than 50% of this time involved counseling and coordination of care.
Anticipated Discharge: 24 - 48 hours
Subjective/Interval History
-
Date of Service: December 22, 2024
Denies pain
Objective Data
-
Labs:
Laboratory Results
12/22/24
05:12
WBC 6.8
Hgb 8.2 L
Hct 26.6 L
Plt Count 246
Sodium 135
Potassium 3.9
Chloride 104
Carbon Dioxide 21 L
BUN 13
Creatinine 0.9
Glucose 95
Calcium 9.5
Vital Signs:
Vital Signs
Temp Pulse Resp BP Pulse Ox
98.4 F 59 20 175/91 95
12/22/24 11:36 12/22/24 10:00 12/22/24 11:36 12/22/24 09:37 12/22/24 11:36
I&O
12/21/24 12/22/24 12/23/24
06:59 06:59 06:59
Intake Total 480 / 480 810 / 810 270 / 270
Output Total 1100 / 1100 475 / 475
Balance 480 / 480 -290 / -290 -205 / -205
--- NOTE | 2024-12-22 15:00 | PN.CDI ---
CDI
- -
CDI:
Physician Documentation Request
Admit Date: 12/19/24 20:30
Dear Doctor Jamie,
Clinical Indicators:
The diagnosis of bifascicular block was included in the signed EKG.
12/18, 2 EKGs: Bifascicular Block
2/ PN, 'Brief pause 12/22 monitor closely'
Please indicate in your progress notes if you are in agreement that the above diagnosis is valid for this patient:
Bifascicular block is a valid diagnosis (Please include it in your progress notes)
Bifascicular block is not a valid diagnosis for this patient
Other
Use of terms such as suspected, likely, concern for, or probable are acceptable for a diagnosis that is being evaluated, monitored or treated as if it exists and can be coded in the inpatient setting, when documented at the time of discharge.
Thank you,
Samira Ngo RN BSN
CDI Specialist
available via tiger text
Please use your independent medical judgment in providing your response.
--- NOTE | 2024-12-22 15:08 | PN.CDI ---
CDI
- -
CDI:
Physician Documentation Request
Admit Date: 12/19/24 20:30
Dear Doctor Jamie,
Clinical Indicators:
Patient admitted with Acute Blood Loss Anemia.
Home medications includes Plavix 75 mg po daily; Plavix is on hold.
2/4 GI consult, 'May have taken increased ASA dose of 325mg instead of 81mg'
Please clarify the likely relationship between the acute blood loss anemia and Plavix/Aspirin use:
Yes, acute blood loss anemia is related to/associated with/exacerbated by Plavix/Aspirin use
No, acute blood loss anemia is not related to/associated with/exacerbated by Plavix/Aspirin use but it is due to ___.(Please specify)
Unable to determine
Use of terms such as suspected, likely, concern for, or probable (associated with a specific diagnosis that is being evaluated, monitored, or treated as if it exists) are acceptable and can be coded in the inpatient setting, when documented at the
time of discharge.
Thank you,
Samira Ngo HUMAN SERVICES INSTRUCTOR
CDI Specialist
available via tiger text
Please use your independent medical judgment in providing your response.
--- NOTE | 2024-12-22 15:11 | PTCARENOTE ---
Patient received from GI awake and alert. VSS, denies pain. Sleeping now, son at bedside
[2024-12-22] MEDS: FERRLECIT 110 MG IV (15:34)
[2024-12-22] MEDS: LASIX 20 MG PO (17:32)
[2024-12-23] VITALS (14 sets, daily range): BP systolic 115–172; BP diastolic 79–101; BMI 26.2
--- NOTE | 2024-12-23 01:05 | PTCARENOTE ---
Rec'd pt at change of shift. Pt AAO*3, VSS, and SR on TELE monitor. Pt complained of mild headache and PRN Tylenol given as ordered. Pt updated on plan of care and resting with call kaba in reach, plan of care ongoing. See pt flowchart and MAR
for full pt assessment and care.
[2024-12-23] MEDS: APRESOLINE 5 MG IV (05:39)
[2024-12-23 05:57] LABS: Hematocrit 26.9 % (39.0-52.0); Hemoglobin 8.2 g/dL (13.0-18.0); Mean Corp Hgb Conc. 30.5 g/dL (33.0-37.0); Mean Corpuscular Hgb 23.7 pg (27.0-31.0); Mean Corpuscular Volume 77.7 fL (80.0-94.0); Mean Platelet Volume 10.2 fL (7.4-10.4); Platelet Count 250 10^3/uL (130-400); Red Blood Cell Count 3.46 10^6/uL (4.70-6.10); Red Cell Dist. Width 19.7 % (11.5-14.5); White Blood Cell Count 7.9 10^3/uL (4.8-10.8)
[2024-12-23 06:19] LABS: Blood Urea Nitrogen 18 mg/dl (9-20); Calcium 9.2 mg/dl (8.4-10.2); Carbon Dioxide 20 mmol/L (22-30); Chloride 104 mmol/L (98-107); Estimated Creatinine Clearance 54 ml/min; Glucose 95 mg/dl (70-99); Potassium 3.6 mmol/L (3.5-5.1); Sodium 135 mmol/L (135-145); eGFR > 60.00
[2024-12-23] MEDS: FLOMAX 0.4 MG PO (08:13)
[2024-12-23] MEDS: TOPROL XL 100 MG PO (08:13)
[2024-12-23] MEDS: NORVASC 5 MG PO (08:14)
[2024-12-23] MEDS: LIPITOR 10 MG PO (08:14)
[2024-12-23] MEDS: DIOVAN 320 MG PO (08:14)
[2024-12-23] MEDS: PROTONIX IV 40 MG IV ×2 (08:15→20:00)
[2024-12-23] MEDS: LEXAPRO 10 MG PO (08:15)
[2024-12-23] MEDS: LASIX 20 MG PO ×2 (08:15→16:15)
[2024-12-23] MEDS: NSS (PRESERVATIVE FREE) 10 ML IV ×2 (08:16→20:00)
[2024-12-23] MEDS: TYLENOL 650 MG PO (08:17)
[2024-12-23] MEDS: PLAVIX 75 MG PO (09:44)
--- NOTE | 2024-12-23 10:02 | PTCARENOTE ---
rec'd pt this shift awake and alert in bed. Pt AAO x 3, forgetful at times. NSR on monitor. Pt ambulated to bathroom with assistance and rolling walker. Am meds given. See worklist for VS/I and O and assessments.
--- NOTE | 2024-12-23 11:07 | PTCARENOTE ---
pt assisted to chair, tolerated well. Pts daughter at bedside, updated them on plan of care of encouraged questions.
--- NOTE | 2024-12-23 11:52 | W.PN.HOSP.TC ---
Today's Communication/Plan
-
Monitor vital signs see plan
Monitor hemoglobin
Restarted Plavix
Continue with IV iron
PPI twice daily
Discharge planning
Discussed with son over the phone
Assessment / Plan
Assessment / Plan
Assessment:
General: No Apparent Distress
HEENT: Normocephalic and Atraumatic
Respiratory: Negative Wheezes
Cardiac: Regular Rhythm and S1/S2
GI: Soft and Nontender
Genito-urinary: No Costovertebral Tender
Musculoskeletal: No Edema
Neuro: AO x 3
Psych: Calm
Acute Blood Loss Anemia secondary to GI Bleed, likely upper GI bleed
Likely exacerbated by aspirin and Plavix
- Hb 4.5 on admission. Now 8.2 after 3 units PRBCs. Follow Hb
- cw IV iron course
- GI following
- continue PPI BID
- s/p EGD 2/ with non bleeding ulcer; discussed with GI, restarted plavix. Patient was also taking full dose aspirin for pain which he is instructed not to take it anymore.
Suspect cognitive impairment
Could also have component of hospital-acquired delirium
Discussed with family and it appears the patient has been having intermittent memory issues. Mental status has been improving now
CT head without any acute abnormality
Patient does appear to have waxing and waning mental status. Does appear to have cognitive impairment however have not been formally diagnosed with dementia. Patient will follow-up with PCP outpatient. If mental status do not improve or get worse
then will need MRI brain
ua without UTI
Brief pause 2/
monitor closely; if frequent or longer then consult cards
no further episode
replete K; mg 2.3
EKG with bifascicular block
hx of Parox A. Fib
- continue BB for rate control
hx of TIA
hx of PAD
Hx of Carotid Atherosclerosis
- Dr. Mg discussed with PCP Dr. Ledezma. Patient has history of ASA failure, therefore only on Plavix. Plavix is held for acute GI bleed.
patient was taking ASA 325 for chronic back pain - he is not on ASA (of any dose) per PCP (see below)
no reported hx of CHF
on lasix at home; restart especially given high BP
Essential HTN
- continue metoprolol, amlodipine and valsartan with hold parameters
Hyperlipidemia
- continue atorvastatin
Anxiety/Depression
- continue escitalopram
BPH
- continue tamsulosin
DVT ppx: SCDs due to GI bleed
Code Status: Full
PT/OT rec SNF
Anticipated Discharge: Within 24 hours
Subjective/Interval History
-
Date of Service: December 23, 2024
denies pain
Objective Data
-
Labs:
Laboratory Results
12/23/24
05:31
WBC 7.9
Hgb 8.2 L
Hct 26.9 L
Plt Count 250
Sodium 135
Potassium 3.6
Chloride 104
Carbon Dioxide 20 L
BUN 18
Creatinine 1.1
Glucose 95
Calcium 9.2
Vital Signs:
Vital Signs
Temp Pulse Resp BP Pulse Ox
98.4 F 75 18 166/81 97
12/23/24 07:03 12/23/24 10:00 12/23/24 07:03 12/23/24 08:15 12/23/24 09:57
I&O
12/22/24 12/23/24 12/24/24
06:59 06:59 06:59
Intake Total 810 / 810 1060 / 1060 500 / 500
Output Total 1100 / 1100 1300 / 1300
Balance -290 / -290 -240 / -240 500 / 500
--- NOTE | 2024-12-23 12:59 | CM ---
Addendum entered by Bharati Coleman 12/23/24 16:04:
Met with Mr. Conner, daughter and son regarding discharge plans. Reviewed [facility] tomorrow if medically stable. The telephone number for report is ([phone]) and fax number is [phone]. Call Jorge [employer] at [phone] for payment for
wheelchair van. Family has decided to go with wheelchair van to transport to [facility]. They are aware of out of pocket cost. Medical work-up in progress. The discharge plan is to go to [facility] when medically stable.
Addendum entered by Bharati Coleman 12/23/24 14:38:
Telephone call to [facility] Case management to [email or web address] for SNF. Approved SNF Rehab. from 12/24/24 to 12/28/24 with [facility] on 12/28/24 to [phone]. Reviewed with daughter above approval. We reviewed wheelchair Van and out of pocket cost. Also
reviewed family can transport if they want. She will let me know regarding transportation. The discharge plan is to go to [facility] on 12/24/24 if stable.
Original Note:
Reviewed chart. Met with Mr. Conner and his daughter to review discharge plans. We reviewed SNF/ Rehab and options for SNF. Family has selected [facility] and [facility]. Telephone call to [facility] Admissions to make the referral. Sent
referral. Sent referral to [facility]. [facility] Admisison can offer a bed tomorrow if medically stable and approved by insurance. Will need pre-cert for SNF. Updated daughter and patient regarding above. Medical work-up in progress. The
discharge plan is to go to [facility] if bed available and approved by his insurance when medically stable.
[2024-12-23] MEDS: FERRLECIT 110 MG IV (15:02)
[2024-12-23] MEDS: FLUSH (NSS) 1 FLUSH IV (20:01)
--- NOTE | 2024-12-23 21:47 | PTCARENOTE ---
Received patient at change of shift. Patient awake in bed, son bedside. Oriented x3. BP 125/88, NSR w/ first degree and BBB 60s, 97% on room air. Discussed plan of care for the evening. Discussed calling the RN when wanting to get up-- RN wrote note
on board for reminder. Patient verbalized understanding. Call kaba within reach.
[2024-12-24 02:23] VITALS: BMI 26.4
[2024-12-24 02:27] VITALS: BP 158/94
[2024-12-24 03:05] LABS: % Basophils 0.4 % (0-2); % Eosinophils 3.2 % (0-6); % Immature Granulocytes 0.7 % (0-0.5); % Lymphocytes 18.1 % (20.5-51.1); % Monocytes 10.7 % (1.7-9.3); % Neutrophils 66.9 % (42.2-75.2); Absolute Eosinophils 0.3 10^3/uL (0-0.7); Absolute Immature Granulocytes 0.1 10^3/uL (0-0.05); Absolute Lymphocytes 1.5 10^3/uL (1.2-3.4); Absolute Monocytes 0.9 10^3/uL (0.1-0.6); Absolute Neutrophils 5.6 10^3/uL (1.4-6.5); Hematocrit 28.9 % (39.0-52.0); Hemoglobin 8.9 g/dL (13.0-18.0); Mean Corp Hgb Conc. 30.8 g/dL (33.0-37.0); Mean Corpuscular Hgb 24.1 pg (27.0-31.0); Mean Corpuscular Volume 78.1 fL (80.0-94.0); Mean Platelet Volume 9.7 fL (7.4-10.4); Nucleated Red Blood Cells % 0.2 % (-); Platelet Count 262 10^3/uL (130-400); Red Cell Dist. Width 20.7 % (11.5-14.5); White Blood Cell Count 8.4 10^3/uL (4.8-10.8)
[2024-12-24 03:21] LABS: ALT (SGPT) 17 U/L (0-50); AST (SGOT) 19 U/L (17-59); Albumin 3.8 g/dl (3.5-5.0); Alkaline Phosphatase 64 U/L (38-126); Blood Urea Nitrogen 20 mg/dl (9-20); Calcium 9.7 mg/dl (8.4-10.2); Carbon Dioxide 21 mmol/L (22-30); Chloride 104 mmol/L (98-107); Estimated Creatinine Clearance 54 ml/min; Glucose 106 mg/dl (70-99); Sodium 135 mmol/L (135-145); Total Bilirubin 0.8 mg/dl (0.2-1.3); Total Protein 5.6 g/dl (6.3-8.2); eGFR > 60.00
--- NOTE | 2024-12-24 07:57 | W.PN.HOSP.TC ---
Today's Communication/Plan
-
Discharge today
Assessment / Plan
Assessment / Plan
Physical Exam
General: No Apparent Distress
HEENT: Normocephalic and Atraumatic
Respiratory: Negative Wheezes
Cardiac: Regular Rhythm and S1/S2
GI: Soft and Nontender. Positive bowel sounds.
Musculoskeletal: No Edema
Neuro: AO x 3
Psych: Calm
Assessment/Plan
Acute Blood Loss Anemia secondary to GI Bleed, likely upper GI bleed
Non-bleeding duodenal ulcer with a clean ulcer base (Talat Class III).
Likely exacerbated by aspirin and Plavix
- Hgb 4.5 on admission. Now 8.9 after 3 units PRBCs. Follow Hgb.
- Continue with IV iron course while inpatient
- Oral iron on discharge
- GI following
- continue PPI BID
- s/p EGD 2/ with non bleeding ulcer; discussed with GI, restarted plavix. Patient was also taking full dose aspirin for pain which he is instructed not to take it anymore.
- Follow-up with Dr. Barber (gastroenterology) in 1 month
- Follow-up biopsy results
Suspect cognitive impairment
Could also have component of hospital-acquired delirium
Discussed with family and it appears the patient has been having intermittent memory issues. Mental status has been improving now
CT head without any acute abnormality
Patient does appear to have waxing and waning mental status. Does appear to have cognitive impairment however have not been formally diagnosed with dementia. Patient will follow-up with PCP outpatient. If mental status do not improve or get worse
then will need MRI brain
ua without UTI
Brief pause 2/
monitor closely; if frequent or longer then consult cards
no further episode
replete K; mg 2.3
EKG with bifascicular block
-Recheck BMP and Magnesium outpatient
hx of Parox A. Fib
- continue BB for rate control
hx of TIA
hx of PAD
Hx of Carotid Atherosclerosis
- Dr. Mg discussed with PCP Dr. Ledezma. Patient has history of ASA failure, therefore only on Plavix. Plavix has been resumed after initially being held for GI bleed.
patient was taking ASA 325 for chronic back pain - he is not on ASA (of any dose) per PCP (see below)
no reported history of CHF
on Lasix at home; restart especially given high BP
Essential HTN
- continue metoprolol, amlodipine and valsartan with hold parameters
Hyperlipidemia
- continue atorvastatin
Anxiety/Depression
- continue escitalopram
BPH
- continue tamsulosin
DVT ppx: SCDs due to GI bleed
Code Status: Full
PT/OT rec SNF
More than 30 minutes spent in discharge including
Final examination of the patient
Summarizing hospital stay
Instructions for continuing care to all relevant caregivers
Preparation of discharge records, prescriptions, and referral forms
Total time spent (in minutes): 40
Anticipated Discharge: Today
Subjective/Interval History
-
Date of Service: December 24, 2024
Patient was seen and examined. He (and his son who was present in the room) reported significant improvement since when he first came to the hospital. They are okay with discharge today.
Objective Data
-
Labs:
Laboratory Results
12/24/24
02:35
WBC 8.4
Hgb 8.9 L
Hct 28.9 L
Plt Count 262
Sodium 135
Potassium 4.0
Chloride 104
Carbon Dioxide 21 L
BUN 20
Creatinine 1.1
Glucose 106 H
Calcium 9.7
Total Bilirubin 0.8
AST 19
ALT 17
Alkaline Phosphatase 64
Vital Signs:
Vital Signs
Temp Pulse Resp BP Pulse Ox
97.8 F 60 16 158/94 97
12/24/24 02:25 12/24/24 06:00 12/24/24 02:25 12/24/24 02:27 12/24/24 02:25
I&O
12/23/24 12/24/24 12/25/24
06:59 06:59 06:59
Intake Total 1060 / 1060 1500 / 1500
Output Total 1300 / 1300
Balance -240 / -240 1500 / 1500
[2024-12-24 08:37] VITALS: BP 142/79
[2024-12-24] MEDS: DIOVAN 320 MG PO (09:05)
[2024-12-24] MEDS: TOPROL XL 100 MG PO ×2 (09:05)
[2024-12-24] MEDS: LEXAPRO 10 MG PO (09:06)
[2024-12-24] MEDS: LASIX 20 MG PO (09:06)
[2024-12-24] MEDS: NORVASC 5 MG PO (09:06)
[2024-12-24] MEDS: LIPITOR 10 MG PO (09:06)
[2024-12-24] MEDS: NSS (PRESERVATIVE FREE) 10 ML IV (09:07)
[2024-12-24] MEDS: PLAVIX 75 MG PO (09:07)
[2024-12-24] MEDS: PROTONIX IV 40 MG IV (09:07)
[2024-12-24] MEDS: FLOMAX 0.4 MG PO (09:11)
--- NOTE | 2024-12-24 15:01 | PTCARENOTE ---
assessment remains stable, pending transfer to [facility] at bedside
== END 2024-12-24 16:30 | DRG 378 ==
LOC: IVU 20:30
PROVIDERS: Internal Medicine; Internal Medicine Gastroenterology; Nurse Practitioner Adult Health; Physician Assistant Medical; ADMITTING PHYSICIAN Internal Medicine; ATTENDING PHYSICIAN Hospitalist; EMERGENCY PHYSICIAN Emergency Medicine; FAMILY PHYSICIAN Internal Medicine; OTHER PHYSICIAN Internal Medicine
PROC: 30233N1 Transfusion of Nonautologous Red Blood Cells into Peripheral Vein, Percutaneous Approach (ICD-10-PCS; 2024-12-19)
PROC: 0DB68ZX Excision of Stomach, Via Natural or Artificial Opening Endoscopic, Diagnostic (ICD-10-PCS; 2024-12-22)
DX: K26.4 Chronic or unspecified duodenal ulcer with hemorrhage (principal); D62 Acute posthemorrhagic anemia; D68.32 Hemorrhagic disorder due to extrinsic circulating anticoagulants; I45.2 Bifascicular block; F05 Delirium due to known physiological condition; L53.8 Other specified erythematous conditions; I10 Essential (primary) hypertension; E78.00 Pure hypercholesterolemia, unspecified; I48.0 Paroxysmal atrial fibrillation; F41.9 Anxiety disorder, unspecified; F32.A Depression, unspecified; N40.0 Benign prostatic hyperplasia without lower urinary tract symptoms; Z79.82 Long term (current) use of aspirin; Z85.828 Personal history of other malignant neoplasm of skin; Z87.891 Personal history of nicotine dependence; Z79.02 Long term (current) use of antithrombotics/antiplatelets; Z86.73 Personal history of transient ischemic attack (TIA), and cerebral infarction without residual deficits; E61.1 Iron deficiency
CPT/HCPCS: 88305; 70450; 71046; 80048; 80053; 81003; 82607; 82728; 82746; 83540; 83550; 83735; 85018; 85025; 85027; 85610; 86850; 86900; 86901; 86920; 88342; 93005; 96374; 97116; 97163; 97167; 97530; 97535; 99291; J2916; P9016

== ENCOUNTER → 2024-12-27 09:25 | Outpatient (REF) | payer OTHER, SELFPAY ==
[2024-12-27 09:55] LABS: % Basophils 0.7 % (0-2); % Eosinophils 4.5 % (0-6); % Immature Granulocytes 0.4 % (0-0.5); % Lymphocytes 19.4 % (20.5-51.1); % Monocytes 10.5 % (1.7-9.3); % Neutrophils 64.5 % (42.2-75.2); Absolute Basophils 0.1 10^3/uL (0-0.2); Absolute Eosinophils 0.3 10^3/uL (0-0.7); Absolute Lymphocytes 1.3 10^3/uL (1.2-3.4); Absolute Monocytes 0.7 10^3/uL (0.1-0.6); Absolute Neutrophils 4.5 10^3/uL (1.4-6.5); Hemoglobin 8.8 g/dL (13.0-18.0); Mean Corp Hgb Conc. 31.4 g/dL (33.0-37.0); Mean Corpuscular Hgb 25.1 pg (27.0-31.0); Mean Corpuscular Volume 79.8 fL (80.0-94.0); Mean Platelet Volume 10.8 fL (7.4-10.4); Nucleated Red Blood Cells % 0 % (-); Platelet Count 228 10^3/uL (130-400); Red Blood Cell Count 3.51 10^6/uL (4.70-6.10); Red Cell Dist. Width 21.8 % (11.5-14.5); White Blood Cell Count 6.9 10^3/uL (4.8-10.8)
[2024-12-27 10:51] LABS: Blood Urea Nitrogen 15 mg/dl (9-20); Calcium 9.1 mg/dl (8.4-10.2); Carbon Dioxide 27 mmol/L (22-30); Chloride 106 mmol/L (98-107); Glucose 89 mg/dl (70-99); Magnesium 2.2 mg/dl (1.6-2.3); Potassium 3.9 mmol/L (3.5-5.1); Sodium 138 mmol/L (135-145); eGFR > 60.00
== END ==
LOC: OLABP 09:25
PROVIDERS: ATTENDING PHYSICIAN Family Medicine
DX: I45.81 Long QT syndrome (principal); D50.0 Iron deficiency anemia secondary to blood loss (chronic); K26.9 Duodenal ulcer, unspecified as acute or chronic, without hemorrhage or perforation; I48.0 Paroxysmal atrial fibrillation; G45.9 Transient cerebral ischemic attack, unspecified; I73.9 Peripheral vascular disease, unspecified; I65.23 Occlusion and stenosis of bilateral carotid arteries; I10 Essential (primary) hypertension; E78.5 Hyperlipidemia, unspecified
CPT/HCPCS: 80048; 83735; 85025